=== PATIENT | male | born 1950 | race Caucasian/White ===

== ENCOUNTER 2018-05-19 21:23 | Inpatient (IN) ==
[2018-05-19 22:26] LABS: BASO# 0.02 X1000 (0.0-0.2); BASO% 0.3 % (0.0-0.8); EOS# 0.11 X1000 (0.0-0.7); EOS% 1.5 % (0.0-10.0); HEMATOCRIT 43.2 % (42.0-52.0); HEMOGLOBIN 14.5 g/dL (14.0-18.0); LYMPH# 1.21 X1000 (1.2-3.4); LYMPH% 16.3 % (20.5-51.1); MCH 31.2 PG (27-31); MCHC 33.6 g/dL (33-37); MCV 92.9 FL (81-99); MONO# 0.71 X1000 (0.11-0.59); MONO% 9.6 % (1.7-9.3); MPV 10.1 FL (7.4-10.4); NEUT# 5.36 X1000 (1.4-6.5); NEUT% 72.3 % (42.2-75.2); PLT 197 X1000 (130-400); RBC 4.65 XMIL (4.7-6.1); RDW 13.6 % (11.5-14.5); WBC 7.41 X1000 (4.8-10.8)
[2018-05-19 22:33] LABS: INR 0.9; PROTIME 12.9 Seconds (11.0-16.0)
[2018-05-19 22:34] LABS: PTT 25.3 Seconds (22.3-41.8)
[2018-05-19 22:41] LABS: AGAP 11; ALB/GLOB RATIO 1.6; ALBUMIN 3.9 g/dL (3.5-5.0); ALKALINE PHOSPHATASE 111 U/L (32-122); BUN 13 mg/dL (8-22); CALCIUM 8.9 mg/dL (8.8-10.2); CHLORIDE 106 mmol/L (98-107); COSMO 283; CREATININE 0.7 mg/dL (0.7-1.2); ESTIMATED GFR > 60; GLUCOSE 90 mg/dL (70-104); GOT 19 U/L (10-34); GPT 17 U/L (10-44); POTASSIUM 3.9 mmol/L (3.5-5.1); SODIUM 142 mmol/L (136-145); TCO2 25 mmol/L (25-35); TOTAL BILIRUBIN 0.67 mg/dL (0.20-1.00); TOTAL PROTEIN 6.4 g/dL (6.3-8.3)
[2018-05-19 23:55] LABS: URINE SOURCE CLEAN CATCH
[2018-05-20 00:01] LABS: BILIRUBIN URINE NEGATIVE (NEGATIVE); BLOOD URINE NEGATIVE (NEGATIVE); COLOR YELLOW; GLUCOSE URINE NEGATIVE (NEGATIVE); KETONE URINE NEGATIVE (NEGATIVE); LEUKOCYTES URINE NEGATIVE (NEGATIVE); NITRITE URINE NEGATIVE (NEGATIVE); PH URINE 6.5; PROTEIN URINE NEGATIVE (NEGATIVE); TURBIDITY URINE CLEAR (CLEAR); UROBILINOGEN URINE NORMAL (NORMAL)
[2018-05-20 00:03] LABS: UR EPITHELIAL CELLS <10 /HPF (<10); URINE BACTERIA NEGATIVE /HPF; URINE RBC <10 /HPF (<10); URINE WBC <10 /HPF (<10)
[2018-05-20] MEDS ORDERED: LIPITOR PO ONE (01:06)
[2018-05-20] MEDS ORDERED: ASPIRIN PO ONE (01:06)
--- NOTE | 2018-05-20 01:21 | PROVIDER DOCUMENTATION ---
This chart was entered by Iliana Llamas Scribe, acting as scribe for Wilman Roy MD. HPI-Neurological Disorder - General Chief Complaint: Stroke-Like Symptoms Stated Complaint: EMS Time Seen by Provider: 05/19/18 21:53 Source: police, EMS Allergies/Adverse Reactions: Patient Allergies Allergy/AdvReac Type Severity Reaction Status Date / Time No Known Allergies Allergy Verified 02/15/18 19:50 Home Medications: Home Medication List Medication Instructions Recorded Confirmed Last Taken Type Hydrocodone/APAP 10 mg/325 mg 1 each PO Q6H PRN PRN 09/06/14 02/15/18 07/18/17 21:00 History [Kelso-10] Clonazepam [Klonopin] 1 mg PO TID 07/23/17 02/15/18 07/18/17 21:00 History Gabapentin 600 mg PO BID 07/23/17 02/15/18 07/22/17 23:00 History Bisacodyl [Dulcolax] 10 mg ND QHS #20 supp 02/14/18 02/15/18 Unknown Rx Promethazine [Phenergan] 25 mg ND Q6H PRN PRN #20 supp 02/14/18 02/15/18 Unknown Rx Sulfamethoxazole/Trimethoprim 1 each PO BID #10 tablet 02/14/18 02/15/18 Unknown Rx [Bactrim Ds Tablet] Ondansetron [Zofran] 4 mg PO Q6H PRN PRN #20 tab 02/15/18 Unknown Rx - History of Present Illness-Neuro Nature of Presenting Problem: 67 yom presents w/ems and police w/ c/o slurred speech, cp and rt leg and arm deficits. pt is an inmate at [facility] and was seen by [facility] at 2030. police states that pt has slurred speech and mumbles but has become worse today. Review of Systems - Adult - REVIEW OF SYSTEMS - ADULT Constitutional: reports: no symptoms reported. denies: chills, fever Eyes: reports: no symptoms reported Ears, Nose, Mouth & Throat: reports: no symptoms reported Cardiovascular: reports: see HPI, chest pain. denies: edema, heart murmur, irregular heart rate, orthopnea Respiratory: reports: no symptoms reported Gastrointestinal: reports: no symptoms reported Genitourinary: reports: no symptoms reported Musculoskeletal: reports: no symptoms reported Integumentary: reports: no symptoms reported Neurological: reports: see HPI, slurred speech, other (rt sided deficits). denies: loss of balance, numbness, seizure, syncope Psychiatric: reports: no symptoms reported Endocrine: reports: no symptoms reported Hematologic/Lymphatic: reports: no symptoms reported Allergic/Immunologic: reports: no symptoms reported All Other Systems: Reviewed and Negative Past History - Adult - PAST MEDICAL HISTORY-ADULT Review of Records: reports: Old Records Reviewed, Nursing Assessment Review, Medications Reviewed, Social history reviewed & non-contributory. Major Childhood Illnesses: reports: denies history Cardiovascular: reports: CAD, HTN, hyperlipidemia, [place] Respiratory: reports: denies history Gastrointestinal: reports: GERD, GI bleed Obstetrical/Gynecological: reports: denies history Genitourinary: reports: prostate cancer Musculoskeletal: reports: chronic pain (back) Neurological: reports: CVA, headaches/migraines Psychiatric: reports: anxiety Endocrine/Immune: reports: denies history Other Conditions: reports: denies history - PRIOR SURGERIES/PROCEDURES Surgical/Procedure History: reports: orthopedic (extremity), back/neck - IMMUNIZATION STATUS Childhood Immunizations: See Nurse Assessment Flu Vaccine: See Nurse Assessment - FAMILY HISTORY Family History: reviewed, not pertinent - SOCIAL HISTORY Smoking: non-smoker Substance Use: none/never Physical Exam- Neurological - Physical Exam-Neuro Initial Vital Signs Reviewed: Yes General Appearance: alert, mild distress, slow to respond (pt mumbles and has slurred speech normally). negative: cachetic, anxious, combative Eye Exam: bilateral eye: normal inspection, PERRL, EOMI HENMT: normocephalic/atraumatic, moist mucous membranes, normal ENT inspection Head Injury: no evidence of injury. negative: active bleeding, contusions, ecchymosis, flap, lacerations, raccoon eyes Neck: non-tender, full range of motion, supple, normal inspection Respiratory: chest non-tender, lungs clear, normal breath sounds Cardiovascular: normal peripheral pulses, regular rate, rhythm, no edema, no gallop, no JVD, no murmur. negative: extra beats, friction rub, irregularly irregular Abdominal Exam: normal bowel sounds, non tender, soft Lymphatic: no adenopathy Peripheral Pulses: radial (R): 2+, radial (L): 2+ Extremity: normal range of motion, non-tender, normal inspection solar tech Exam: normal hearing, PERRL, abnormal speech (mumbles and slurred). negative: normal speech, abnormal eye position, abnormal gag reflex, abnormal pupil position, gaze palsy, hearing deficit (R), hearing deficit (L) Motor/Sensory: weak motor strength RUE, weak motor strength RLE. negative: no motor deficit, no sensory deficit, pronator drift (R), pronator drift (L) Neurologic: motor weakness (rt side). negative: grossly normal, no motor/sensory deficits Integumentary: normal color, normal turgor, warm/dry Psych/Mental Status: normal mood/affect, normal thought content, normal thought process, oriented x 3, disheveled. negative: anxious, depressed affect, paranoid, tearful - Glascow Coma Scale Best Eye Response: (4) open spontaneously Best Verbal Response: (5) oriented Best Motor Response: (6) obeys commands Total Glascow Score: 15 Progress - PLAN OF CARE/RESULTS Progress/Plan/Lab Results: Vital Signs - 8 hr 05/19/18 21:57 05/19/18 21:58 05/19/18 22:10 Temperature 98.6 F Pulse Rate 77 71 70 Respiratory Rate 20 26 H 28 H Blood Pressure 186/96 186/96 O2 Sat by Pulse Oximetry 96 97 97 05/19/18 22:54 05/19/18 23:01 05/19/18 23:15 Temperature Pulse Rate 75 76 71 Respiratory Rate 19 16 20 Blood Pressure 179/103 176/92 168/112 O2 Sat by Pulse Oximetry 98 97 96 05/19/18 23:30 05/19/18 23:46 05/20/18 00:00 Temperature Pulse Rate 68 67 61 Respiratory Rate 27 H 19 14 Blood Pressure 156/92 145/91 150/84 O2 Sat by Pulse Oximetry 96 95 96 Laboratory Results - last 24 hr 05/19/18 05/19/18 05/19/18 21:55 21:55 21:55 WBC 7.41 RBC 4.65 L Hgb 14.5 Hct 43.2 MCV 92.9 MCH 31.2 H MCHC 33.6 RDW Std Deviation 13.6 Plt Count 197 MPV 10.1 Neut % (Auto) 72.3 Lymph % (Auto) 16.3 L [place] % (Auto) 9.6 H Eos % (Auto) 1.5 Baso % (Auto) 0.3 Neut # (Auto) 5.36 Lymph # (Auto) 1.21 [place] # (Auto) 0.71 H Eos # (Auto) 0.11 Baso # (Auto) 0.02 PT 12.9 INR 0.90 PTT (Actin FS) 25.3 Sodium 142 Potassium 3.9 Chloride 106 Carbon Dioxide 25 Anion Gap 11 BUN 13 Creatinine 0.7 Estimated GFR/1.73 m2 > 60 BUN/Creatinine Ratio 19 Glucose 90 POC Glucose Calculated Osmolality 283 Calcium 8.9 Total Bilirubin 0.67 AST 19 ALT 17 Alkaline Phosphatase 111 Troponin T Total Protein 6.4 Albumin 3.9 Globulin 2.5 Albumin/Globulin Ratio 1.6 Urine Source Urine Color Urine Turbidity Urine pH Ur Specific [place] Urine Protein Ur Glucose (Stick) Ur Ketones (Stick) Urine Blood Urine Nitrite Urine Bilirubin Urobilinogen Dipstick Urine Leukocytes Urine WBC (Auto) Urine RBC (Auto) U Epithel Cells (Auto) Urine Bacteria (Auto) 05/19/18 05/19/18 05/19/18 21:55 22:34 23:48 WBC RBC Hgb Hct MCV MCH MCHC RDW Std Deviation Plt Count MPV Neut % (Auto) Lymph % (Auto) [place] % (Auto) Eos % (Auto) Baso % (Auto) Neut # (Auto) Lymph # (Auto) [place] # (Auto) Eos # (Auto) Baso # (Auto) PT INR PTT (Actin FS) Sodium Potassium Chloride Carbon Dioxide Anion Gap BUN Creatinine Estimated GFR/1.73 m2 BUN/Creatinine Ratio Glucose POC Glucose 81 Calculated Osmolality Calcium Total Bilirubin AST ALT Alkaline Phosphatase Troponin T < 0.010 Total Protein Albumin Globulin Albumin/Globulin Ratio Urine Source CLEAN CATCH Urine Color YELLOW Urine Turbidity CLEAR Urine pH 6.5 Ur Specific [place] 1.020 Urine Protein NEGATIVE Ur Glucose (Stick) NEGATIVE Ur Ketones (Stick) NEGATIVE Urine Blood NEGATIVE Urine Nitrite NEGATIVE Urine Bilirubin NEGATIVE Urobilinogen Dipstick NORMAL Urine Leukocytes NEGATIVE Urine WBC (Auto) <10 Urine RBC (Auto) <10 U Epithel Cells (Auto) <10 Urine Bacteria (Auto) NEGATIVE Orders Category Date Time Status Cardiac Monitoring DIRECTED Care 05/19/18 22:00 Active Finger Stick Blood Sugar (ED) DIRECTED Care 05/19/18 22:00 Active Saline Loc NOW Care 05/19/18 22:00 Active CHEST-PORTABLE [RAD] Stat Exams 05/19/18 22:[address] HEAD W/O CONTRAST [CT] Stat Exams 05/19/18 22:00 Taken CBC WITH ELECTRONIC DIFF [HEME] Stat Lab 05/19/18 21:55 Completed COMPREHENSIVE METABOLIC PANEL [CHEM] Stat Lab 05/19/18 21:55 Completed PROTIME WITH INR [COAG] Stat Lab 05/19/18 21:55 Completed PTT [COAG] Stat Lab 05/19/18 21:55 Completed TROPONIN T Stat Lab 05/19/18 21:55 Completed URINALYSIS W/POSS RFLX CULT [URINALYSIS] Stat Lab 05/19/18 23:48 Completed ATORVAstatin [Lipitor] Med 05/20/18 01:06 Discontinued 80 mg PO NOW ONE Aspirin Med 05/20/18 01:06 Discontinued 325 mg PO NOW ONE EKG [EKG] Stat Ther 05/19/18 22:00 Ordered Transfer/Admit Order [TRANSFER] Routine Transfer 05/20/18 01:08 Ordered Result Diagrams: 05/19/18 21:55 05/19/18 21:55 - EKG 1 Time of EKG reading by physician:: 22:29 EKG Read and Signed by:: Wilman Roy EKG Interpretation (*Must complete 3 of following elements*): Abnormal (borderline) Rate: 60 Rhythm: NSR QRS: RBB (incomplete) ND Interval: normal - CT/MRI 1 CT Study: Head (Impression: No acute hemmorage or process identified) Impression: Normal Departure - Departure Date of Disposition Decision: 05/20/18 Time of Disposition Decision: 01:21 DIAGNOSIS: Stroke-like symptom Disposition: ADMITTED INPATIENT 09 Certified Medical Emergency: Emergent Condition: Stable Referrals and Follow-Ups: Bubba Sauer MD [Primary Care Provider] - - Critical Care Note This patient required my direct & personal management of CC.: No Attestation - Physician/ CURTIS Attestation Patient care was provided by Advanced Practice Provider:: No The physician spent face to face time with patient:: Yes Advanced Practice Provider documentation review:: Supervising physician onsite and consulted in the evaluation and care of this patient. The physician did have a face to face encounter with the patient. This chart was documented by the indicated scribe, (Iliana Llamas, Francois) and accurately reflects the services I performed and decisions made by me, Wilman Roy MD, as attested by the provider's signature.
--- NOTE | 2018-05-20 02:48 | HISTORY AND PHYSICAL ---
PHYSICIAN: Bubba Sauer MD REASON FOR ADMISSION: One-day history of dysarthria and right-sided numbness and weakness. HISTORY OF PRESENT ILLNESS: Mr. Roni Abdullahi is a 67-year-old man with a past medical history of a CVA, prostate cancer, hypertension, hyperlipidemia, coronary artery disease and prior history of organic brain disorder. He is currently a resident of the local care home. He reports that about several hours ago, yesterday night, he was sitting in his cell and he noticed a roaring noise in his head which persisted for well over 30 minutes. He said he lost his hearing after awhile transiently and the roaring noise got worse. The next thing he knew was that he may have blacked out and when he came to [facility] While he was in the [facility] they checked his blood pressure which was markedly elevated, as he was told, and he needed to come to the hospital. However, when he came to he also noticed that his right side was weaker than his left side and there was associated numbness. He said his speech was also somewhat compromised in the sense that he had a hard time enunciating some words. He also reports at the time when he came to that he had mid retrosternal chest pain which was nonradiating associated with some shortness of breath and some mild nausea, but no diaphoresis or palpitations. Since being in the ER he says his weakness on the right side and numbness have slowly improved and his speech has gotten a little better. The pain is also subsiding. He has a hard time qualifying the type of pain he has. He denies antecedent PND, orthopnea, leg swelling or palpitations in the past. He denies any visual symptoms, neck stiffness or fever. He says currently he has a dull frontal headache. REVIEW OF SYSTEMS: A 12-system review was done. Patient denies any polyuria or polydipsia, no arthralgia or rash. He denies any fecal or urinary incontinence. He denies any tongue bite. No GI or complaints. HOME MEDICATIONS: At yet to be reconciled. SURGICAL HISTORY: He has had a skull fracture repair surgery, testicular surgery, back surgery, knee and hand surgery. SOCIAL HISTORY: Does not smoke, drink or do illicit drugs. Had a distant history of use of cocaine and heroin, and not too distant use and abuse of methamphetamines. FAMILY HISTORY: Notable for diabetes, stroke and coronary artery disease in first-degree relatives. ALLERGIES: No known allergies. LAB WORK: CT head does not show any acute intracranial bleed. Chest film is slightly rotated; no gross abnormalities noted. White count 7000, hemoglobin 14, hematocrit 43, platelets 197,000. Chemistry: BUN 13, creatinine 0.7. Troponin less than 0.010. PT and PTT are normal. Urine drug screen is negative. EKG shows normal sinus rhythm, no acute ST wave changes consistent with ischemia or injury pattern, possible incomplete right bundle-branch block. PHYSICAL EXAMINATION: VITAL SIGNS: Blood pressure 150/84, heart rate 61, respirations 14, temperature 98.6, 96% on room air. GENERAL: He is a middle-aged man not in acute distress. Alert and oriented x3, normal mood and affect. HEENT: Normocephalic, atraumatic. Eyes are PERRLA, EOMI. He is anicteric and mildly pale. Oropharyngeal exam is grossly normal, some cyanosis. NEUROLOGY: Cranial nerves 2-12 are only notable for mild dysarthric speech. He does have a long- standing history of some degree of dysarthria of his speech according to the guard who is at the bedside and knows him, but says this is slightly worse than normal. On the rest of his neurologic exam the patient does have 3-4/5 power of the entire right side compared to the left which is 5/5. There are no tremors noted. Cranial nerves 2-12 grossly intact otherwise. NECK: Supple. No JVD, carotid bruit or thyromegaly. CHEST: Clear when auscultated on both lung helms. CARDIOVASCULAR: First and second heart sounds heard. No gallops, murmurs or rubs. Rhythm is regular. ABDOMEN: Full, soft, without tenderness or organomegaly. Bowel sounds are normal. RECTAL: Exam deferred at this time. EXTREMITIES: Neurovascularly intact. No edema, clubbing or cyanosis. SKIN: Intact with no breakdown or lesions. MUSCULAR: Exam is grossly normal. ASSESSMENT AT THIS TIME: 1. 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 2. Hypertension. 3. Hyperlipidemia. 4. Coronary artery disease. PLAN: Stroke risk modification will be initiated. Lipid panel will be checked and high dose statins and antiplatelet therapy instituted at this point in time. Very conservative blood pressure control. Only if systolic blood pressure is greater than 160 will we intervene. This will be with moderate to low doses of antihypertensives. Imaging studies and also echocardiography will be ordered. Consult Neurology to see the patient. Neuro checks will also be done to monitor the patient. Urine drug screen will also be done to ensure the patient is not using illicit substances which may have incited this event, especially since he has a longstanding history of drug abuse, even though he has been incarcerated. DVT prophylaxis will also be instituted. He will benefit from some degree of PT, speech therapy and occupational therapy while he is in house. cc: MD Odell Quijano MD
[2018-05-20 04:37] LABS: UR AMPHETAMINES QUAL NONE DETECTED (NONE DETECT); UR BARBITUATES QUAL NONE DETECTED (NONE DETECT); UR BENZODIAZEPIN QUAL NONE DETECTED (NONE DETECT); UR CANNABINOIDS QUAL NONE DETECTED (NONE DETECT); UR COCAINE QUAL NONE DETECTED (NONE DETECT); UR METHADONE QUAL NONE DETECTED (NONE DETECT); UR OPIATES QUAL NONE DETECTED (NONE DETECT); UR OXYCODONE QUAL NONE DETECTED (NONE DETECT); UR PCP QUAL NONE DETECTED (NONE DETECT)
[2018-05-20] MEDS: LOPRESSOR PO SCH ×2 (04:38→09:00)
[2018-05-20] MEDS ORDERED: ZOFRAN IV PRN (04:38)
[2018-05-20] MEDS ORDERED: NS 1,000 ML IV SCH (04:38)
[2018-05-20] MEDS: LOVENOX SUBQ SCH (05:10)
[2018-05-20] MEDS ORDERED: TYLENOL PR PRN (06:26)
--- NOTE | 2018-05-20 06:29 | Diag Imaging Result Doc PS360 ---
CT HEAD W/O CONTRAST - 05/19/2018 INDICATION: stroke like symptoms COMPARISON: 09/17/2014 FINDINGS: The ventricles and sulci are normal in size and contour. No intracranial mass or hemorrhage. The skull is intact. The sinuses mastoids and middle ears are clear. IMPRESSION: Negative exam. This exam was performed using automated exposure control, adjustment of mA or kV according to patient size, and/or use of iterative reconstruction technique Electronically signed by Zhang Mart 05/20/2018 6:27 AM
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
--- NOTE | 2018-05-20 07:41 | EKG Report ---
Test Performed on : 05/19/2018 10:29:34 PM Test Reason : Stroke like symptoms Blood Pressure : / mmHG Vent. Rate : 060 BPM Atrial Rate : 060 BPM P-R Int : 148 ms QRS Dur : 096 ms QT Int : 412 ms P-R-T Axes : 043 -28 045 degrees QTc Int : 412 ms Normal sinus rhythm. Incomplete right bundle branch block Borderline ECG When compared with ECG of 21-JUL-2017 23:47, No significant change was found Unconfirmed Result
[2018-05-20] MEDS ORDERED: VASOTEC IV PRN (08:31)
[2018-05-20] MEDS ORDERED: NORVASC PO SCH (09:00)
[2018-05-20 10:11] LABS: HEMOGLOBIN A1C 5.1 % (4.8-6.0)
--- NOTE | 2018-05-20 10:28 | PROGRESS NOTE ---
DATE: 05/20/2018 INTERVAL HISTORY: Mr. Abdullahi is a 67-year-old man who [facility], who came in with complaints of slurred speech and right-sided weakness. In the ED document, it says that the patient was seen by a physician in the retirement at about 8:30 p.m., and the ED note is at around midnight, so it looks like the patient came in more than 3.5 hours after symptom onset, and he did not receive any tPA. SUBJECTIVE: The patient is a little teary. He continues to have weakness of right upper and right lower extremity. I discussed with him about his blood pressure goals, and answered his questions. OBJECTIVE: Current Vital Signs: Temperature of 98.4 degrees, pulse 69, respiratory rate 18, blood pressure 162/106, saturating 96% on room air. General: Does not appear in any acute distress. HEENT: Oral cavity is moist. No pallor, cyanosis, clubbing, or icterus. Lungs: Air entry bilaterally equal. No wheeze, rhonchi, crackles. Cardiovascular: S1, S2 normal. No murmur, rub, or gallop. Abdomen: Soft, nontender. No lower extremity edema. Electrocardiogram had normal sinus rhythm with incomplete right bundle branch block. Neurological: He is alert. He is oriented x3. He has decreased sensations affecting entire right face, right upper extremity, right lower extremity, and to some extent, right trunk. He has power about 2/5 affecting right upper extremity and right lower extremity at wrist, elbow, shoulder, hip, knee, and ankle joints. His cranial nerve examination suggests that he does have tongue deviation to left side and some left-sided drooping. He is not able to make a puff on the left cheek. His forehead furrows appear normal. He does have intact cough. His speech is stuttering, which is apparently baseline for him. He has 2+ reflexes bilaterally. I could not elicit Babinski reflex on the right. On the left side, he does inconsistent response. LABORATORY DATA: Labs suggestive of normal blood counts, normal electrolytes, normal urinalysis. ASSESSMENT AND PLAN: 1. 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 Follow up MRI, MRA, echocardiogram, lipid panel, hemoglobin A1c, and troponin. Follow up physical therapy, occupational therapy, and speech therapy recommendations with Neurology on board. I will allow permissive hypertension for at least the next 24 hours, and will treat it with intravenous enalapril if systolic blood pressure is more than 220 or diastolic blood pressure more than 120 mmHg. 2. For secondary prevention of cerebrovascular accident, I will continue him on daily aspirin, atorvastatin. I will appreciate Neurology recommendation about need for dual antiplatelet therapy for 6 months. Continue enoxaparin for deep venous thrombosis prophylaxis for now. DISPOSITION: The patient remains inside the hospital for further workup. He is an inmate of [facility]. His visit is secure, and I was told by the bedside security personnel that the patient's family should not be notified of this admission. Plan of care discussed with the patient. All of his questions have been answered. CODE status: DNR level 1 after discussion with the patient. ADDENDUM: He wants to be a full code now as informed to me by his nurse. cc: Den Rios MD MTDD
[2018-05-20] MEDS ORDERED: NEURONTIN PO SCH (13:00)
--- NOTE | 2018-05-20 14:49 | ECHO REPORT ---
ORDER DATE: 05/20/2018 INDICATION: CVA. FINDINGS: 1. The right atrium appears normal in size. There is an echodensity in the superior aspect of the right atrium, which could be a catheter tip versus a eustachian valve. 2. Trace tricuspid regurgitation. RV systolic pressure is estimated at 43 mmHg. 3. Normal RV size and systolic function. 4. Trace pulmonic insufficiency. 5. Normal left atrial size with a dimension of 3.8 cm. 6. No mitral valve prolapse. Trace mitral regurgitation. 7. Normal LV size, end-diastolic dimension of 4.9. Normal wall thicknesses with a posterior and interventricular septal wall thickness 1.1 cm each. Normal LV systolic function. The estimated EF is 60% to 65% with normal wall motion. 8. Aortic valve opens well. It is trileaflet. There is mild insufficiency. No clear evidence of stenosis. 9. The aorta appears normal in visualized segments. 10. No pericardial effusion is identified. 11. 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 12. Patient is in sinus rhythm during the study. cc: MD Oedll Pérez MD
--- NOTE | 2018-05-20 17:01 | CONSULTATION ---
DATE OF CONSULTATION: 05/20/2018 REASON FOR CONSULT: Stroke. HISTORY OF PRESENT ILLNESS: This is a 67-year-old right-handed male in who currently resides in the local [facility]. He has a history of reported "mild stroke," hypertension, hyperlipidemia, and polysubstance abuse. Last night, he noticed sudden onset of a roaring noise in his head, and that persisted for several minutes' time. He subsequently may have blacked out and realized he was being evaluated by the staff. Apparently, his blood pressure was elevated at the [facility], though I do not see documentation of this directly. He was brought to the emergency room. He also had realized he had right arm and leg weakness and had some difficulty with getting his words out. Since being in the emergency department, his symptoms have shown some improvement, but he is not at baseline. He had a head CT that was unremarkable. Urine toxicology was negative. Chemistry panel unremarkable. The patient went to [facility] about 2 weeks ago, and he reports that while he was taking a full-dose aspirin daily at home as well as several other medications, including Neurontin, Ativan, lisinopril, and others, that those were not continued since he has been in the [facility]. PAST MEDICAL HISTORY: Includes: 1. Reported hypertension. 2. "Mild stroke" 10 years ago with symptoms of right lower facial drooping. 3. Hyperlipidemia. 4. Anxiety. PAST SURGICAL HISTORY: 1. Three back surgeries 2. Surgery to the left knee. 3. Surgery to the left hand. 4. There is report of skull fracture repair surgery. FAMILY HISTORY: Positive for stroke and coronary disease. SOCIAL HISTORY: He is a lifelong nonsmoker. He does not currently drink or do illicits. He reports the last time he was using drugs was 1 year ago, and he reports using heroin, methamphetamine that he injected, and cocaine. He used to drink many years ago. He has been in the [facility] for 2 weeks. ALLERGIES: No known drug allergies. HOME MEDICATION: He has not received daily medications for 2 weeks in the [facility]. REVIEW OF SYSTEMS: Balance of 12 was conducted and is otherwise negative except that detailed in the HPI. PHYSICAL EXAMINATION: Vital Signs: Afebrile, blood pressure was 186/96 on admission, current 168/102, pulse 60s, respirations 20, 97% on room air. Neurological: Mr. Abdullahi is seen walking from the restroom with assistance. He is dragging his right leg and holding his right arm flexed against his chest. He is awake, alert, oriented to self, location, but does not otherwise answer orientation questions correctly. He is attentive and spontaneous. He follows simple commands consistently. Left, right, and digit distinction preserved. He names objects, but not parts of objects. He repeats part of the sentence, but not the full sentence. His voice is somewhat low, slowed. There is a bit of hesitation with many of his words, and he is somewhat difficult to understand. There is also a component of stuttering. Pupils equal, round, reactive to bright light. Gaze conjugate, forward. Extraocular movements are full. Visual helms: He may have a right field cut. He can hear. There is potentially a very subtle flattening of the nasolabial fold on the right with good activation. Tongue protrudes to the left. Palate elevates symmetrically. Shoulder shrug is full. He reports diminished sensation to pinprick on the right lower face but reports that the pinprick is symmetric on the right and left forehead. However, with vibratory sense, he has forehead splitting as well as splitting of the nasal bone. He has a difficult time raising the right arm and does so exceedingly slowly. It does drift downward but does not pronate. Tone is symmetric in the limbs. He requires encouragement with strength testing of the right arm and leg, though at times seems to give pretty full strength in all muscles. I did not get him to dorsiflex the right foot as well. He reports diminished sensation to pinprick on the right arm and leg compared to the left. Rapid alternating movements are slowed on the right compared to the left. [id number], he does not participate very well using the right arm. His gait was as described above. Reflexes are 2+, slightly diminished on the right compared to the left, but this is very slight. DIAGNOSTICS: Head CT noncontrast was personally reviewed. No acute findings. Labs reviewed in the chart are pretty unremarkable. Toxicology is negative. ASSESSMENT AND PLAN: Concern for left middle cerebral artery distribution stroke. He has some exam findings which would be consistent with this; however, he also has some functional components to his exam. Agree with MRI and MRA of the brain. I am also going to order an MRA of the neck to rule out dissection. He has not been taking aspirin since being in the [facility], and I would recommend a low- dose daily aspirin as well as high-potency statin therapy. I would not suggest dual antiplatelet therapy. Agree with permissive hypertension for the next few days if MRI does indeed confirm ischemic stroke. Given the prolonged duration of symptoms, we should be able to see ischemic changes on MRI if that is indeed the etiology. PT/OT, ST. Thank you for the consultation. cc: Gosia Ross MD MTDAle
[2018-05-20] MEDS: TYLENOL PO PRN (18:04)
[2018-05-20] MEDS ORDERED: TYLENOL PO ONE (18:09)
[2018-05-20] MEDS ORDERED: LIPITOR PO SCH (21:00)
[2018-05-20] MEDS: ATIVAN PO SCH (21:53)
[2018-05-20] MEDS: NEURONTIN PO SCH (21:53)
[2018-05-21] MEDS: LOVENOX SUBQ SCH (05:05)
[2018-05-21] MEDS ORDERED: ASPIRIN PO SCH (09:00)
--- NOTE | 2018-05-21 10:24 | Diag Imaging Result Doc PS360 ---
EXAM: MRA BRAIN W/O CONTRAST 05/21/2018 HISTORY: stroke TECHNIQUE: 3-D [id number] COMMENT: Both vertebral and the basilar artery are patent. The posterior communicating artery on the right is demonstrated. There is no evidence of major branch occlusion or aneurysm. Compared to the previous study of 09/06/2014 the more peripheral vessels are better demonstrated but otherwise are has been no significant change. IMPRESSION: No significant abnormality. Electronically signed by Qamar Haile 05/21/2018 10:22 AM
--- NOTE | 2018-05-21 10:26 | Diag Imaging Result Doc PS360 ---
EXAM: MRA NECK W/O CONT 05/21/2018 HISTORY: stroke TECHNIQUE: 3-D [id number] COMMENT: The current study is technically inferior to the previous examination of 09/06/2014 which was performed with contrast. There is no evidence of occlusive lesion in the common or internal carotid arteries. IMPRESSION: No evidence of occlusion. Electronically signed by Qamar Haile 05/21/2018 10:24 AM
[2018-05-21] MEDS: NEURONTIN PO SCH ×2 (10:32→14:04)
[2018-05-21] MEDS: TYLENOL PO PRN (10:32)
[2018-05-21] MEDS: ATIVAN PO SCH (10:32)
--- NOTE | 2018-05-21 10:33 | Diag Imaging Result Doc PS360 ---
EXAM: MRI BRAIN W/WO CONTRAST 05/21/2018 HISTORY: stroke TECHNIQUE: T1 sagittal, axial and post gadolinium axial with coronal reformation, T2, FLAIR, DWI axial and coronal gradient echo. COMMENT: The current examination is compared with the previous study of 09/06/2014. There is no evidence of restricted diffusion. There is some considerable motion artifact on the T1 axial images. There is no evidence of mass effect, bleed, or abnormal extra-axial fluid collection. No evidence of abnormal gadolinium enhancement is present. There are a few punctate subcortical foci of increased T2-weighted signal intensity in both parietal lobes similar in appearance to the previous study. IMPRESSION: Chronic ischemic microvascular white matter disease. No evidence of acute disease. Electronically signed by Qamar Haile 05/21/2018 10:31 AM
--- NOTE | 2018-05-21 12:52 | PROGRESS NOTE ---
DATE: 05/21/2018 SUBJECTIVE: Dr. Ross saw Mr. Abdullahi for initial neurology evaluation yesterday. He presented with uncertain speech difficulty and right-sided weakness. There were some significant atypical features to his exam. He has had stable course since admission. This morning, he told me he feels better, feels stronger, still reports weakness in the right limbs. PHYSICAL EXAMINATION: Neurologic: His speech is feeble, slow, inconsistent stuttering, more of a baby talk pattern than a true dysarthria or hypophonia. He followed simple commands consistently. He followed commands requiring right/left distinction and digit distinction. He named objects and parts of objects well. Answers were often slow, but all were correct. I did not test his cognitive function. Head and neck unremarkable. Visual helms are full, tested by confrontational finger counting. Extraocular movements are full. Facial motility is normal and symmetric. Gag is intact. Tongue protrudes very inconsistently to the left. Shoulder shrug is good bilaterally. Strength is normal in the left limbs. He demonstrates very slow movement in the right limbs but eventually generated full power in all groups. His effort was quite inconsistent when testing the right limbs. With repeated testing and distraction, he showed normal strength in the right limbs. He did well with right [id number]. I did not test his gait or sensation. DIAGNOSTIC DATA: Brain MRI just completed shows no acute findings and specifically no evidence of acute ischemic left hemisphere infarction. Brain MRA and cervical MRA are unremarkable. Systolic blood pressures have ranged 120s to 190 in the last 24 hours. He has been afebrile. IMPRESSION: Subjective right-sided weakness and speech difficulty with no objective neurologic deficit, no evidence of ischemic stroke, no evidence of other [employer] explanation for these complaints. I told him that I think he will make full recovery rapidly. I do not have any urgent suggestion from neurologic standpoint. I think we can treat his blood pressure more aggressively in light of the findings on exam and MRI. We discussed his risk factors for cerebrovascular ischemic disease, and I encouraged him to be aggressive with long-term management of those. Mr. Abdullahi has history of fairly similar presentation except left-sided symptoms in 2015. Workup was all negative then. Findings on exam were all subjective, equivocal, inconsistent with no objective deficit. He made complete recovery. Migraine was a consideration then. Thanks for asking Neurology to see Mr. Abdullahi. I will be glad to see him as an outpatient later, if needed. cc: MD RAMSES Calvert III
[2018-05-21 15:41] VITALS: BP 137/85
--- NOTE | 2018-05-22 13:54 | DISCHARGE SUMMARY ---
ADMISSION DATE: 05/20/2018 DISCHARGE DATE: 05/21/2018 The patient left against medical advice as he did not want to wait till I could see him. Date of discharge 05/21/2018. DISCHARGE DIAGNOSES: 1. Suspected left middle cerebral artery cerebrovascular accident; however, the MRI imaging was negative, so unclear etiology of left upper and lower extremity weakness. 2. Essential hypertension. 3. Chronic pain. 4. Chronic anxiety. 5. History of organic brain disorder. 6. History of hyperlipidemia. OTHER DIAGNOSES: 1. History of incarceration. 2. History of hypertension. 3. History of prostate cancer. 4. History of coronary artery disease. 5. History of organic brain disorder. 6. History of essential hypertension. DOCUMENTED VITALS: At the time of discharge, temperature of 98.5 degrees, pulse 107, respiratory rate 20, blood pressure 137/85. He was saturating 97% on room air. I could not perform physical examination at the time of discharge as the patient left against medical advice before I could see him. However, on my previous examination, he did have decreased sensation of right-sided face, right upper extremity, right lower extremity. He also had weakness with power about 2 on 5 on right upper and right lower extremity. His tongue was deviated to the left. SIGNIFICANT LABS: During hospital admission, his WBC was 7.4, hemoglobin 14.5, platelet count 197,000. INR of 0.9. Normal electrolytes with creatinine of 0.7. Lipid panel suggestive of LDL of 82 and total cholesterol of 115. His urine toxicology was unremarkable. No microbiological data. SIGNIFICANT IMAGING: During hospital admission, chest x-ray on admission had mild cardiomegaly without any consolidation. Head CT did not have any acute intracranial pathology. Brain MRA did not have any acute abnormalities. Brain MRI had chronic ischemic microvascular white matter changes without evidence of acute disease. Neck MRA did not have any evidence of any occlusion. HOSPITAL COURSE SUMMARY: Mr. Abdullahi is a 67 years old man who came in on 05/20/2018 with chief complaints of 1-day history of dysarthria, right-sided numbness and weakness. The patient was at that time a [facility] of local [facility]. Apparently, the patient had started noticing roaring noise in his head, which persisted about 30 minutes and then later on he had passed out and [facility] At that time his blood pressure was noted to be markedly elevated and he was advised to come to the hospital. When he came to the hospital, he noted that his right-sided lower right side, upper and lower extremity was significantly weaker than the left side with associated numbness. His speech was also somewhat compromised. In the emergency room, he was found to have a systolic blood pressure of 180. Head CT was unremarkable. No tPA was given as the patient likely presented after 3.5 hours of symptom onset. He was admitted on telemetry unit for further monitoring. While inside the telemetry unit, he did not have any acute events that were reported to me. His imaging including echocardiogram had normal left ventricle systolic function. Brain imaging was unremarkable. Neurology was on board. The patient was started on aspirin and high-dose statin for future CVA prevention. However, considering negative brain MRI, it was baffling what could have presented, what could have cause the patient's presentation. Neurology noted that the patient had similar presentation in 2015 as well. Before further investigation into this could be done the patient left against medical advice. He was also released from the custody and I could not see him. Less than 30 minutes were spent in preparing discharge summary for this patient. cc: Den Rios MD MTDD
== END 2018-05-21 16:08 | disposition left against medical advice (07) | DRG 57 ==
LOC: ED 21:23 → SUATTDRO 05-20 03:50 → EDIPHOLD 05-20 03:50 → 4N 05-20 14:21
PROVIDERS: ATTEND Internal Medicine
CPT/HCPCS: 70450; 70544; 70547; 70553; 71010; 71045; 80053; 80061; 80101; 80301; 80307; 80324; 80345; 80346; 80353; 80358; 80361; 80365; 81001; 82948; 83036; 83721; 83992; 84484; 85025; 85610; 85730; 92526; 93005; 93306; 93880; 94761; 96360; 96361; 96372; 97110; 97162; 97165; 97530; 99285; A9270; A9579; C8929; G0431; G0434; G0479; G0480; J1650; J7030; Q9957; XXXXX

== ENCOUNTER 2018-10-08 11:53 | Inpatient (IN) ==
--- NOTE | 2018-10-08 12:22 | Diag Imaging Result Doc PS360 ---
EXAM: CT HEAD W/O CONTRAST 10/08/2018 HISTORY: possible stroke TECHNIQUE: This exam was performed using automated exposure control, adjustment of mA or kV according to patient size, and/or use of iterative reconstruction technique. COMMENT: There is no evidence of mass effect, bleed, or abnormal extra-axial fluid collection. Compared to 05/26/2018 there has been no significant change. The calvarium is intact. The visualized paranasal sinuses are clear. IMPRESSION: No evidence of acute intracranial disease. Electronically signed by Qamar Haile 10/08/2018 12:20 PM
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
[2018-10-08 13:01] LABS: BASO# 0.02 X1000 (0.0-0.2); BASO% 0.3 % (0.0-0.8); EOS# 0.09 X1000 (0.0-0.7); EOS% 1.4 % (0.0-10.0); HEMOGLOBIN 12.5 g/dL (14.0-18.0); IMM GRAN# 0.01 X1000 (0.0-0.04); IMM GRAN% 0.2 % (0.0-0.5); LYMPH# 1.05 X1000 (1.2-3.4); LYMPH% 16.8 % (20.5-51.1); MCH 30.9 PG (27-31); MCHC 33.8 g/dL (33-37); MCV 91.4 FL (81-99); MONO% 9.6 % (1.7-9.3); MPV 10.4 FL (7.4-10.4); NEUT# 4.48 X1000 (1.4-6.5); NEUT% 71.7 % (42.2-75.2); PLT 227 X1000 (130-400); RBC 4.05 XMIL (4.7-6.1); RDW 13.6 % (11.5-14.5); WBC 6.25 X1000 (4.8-10.8)
[2018-10-08 13:04] LABS: INR 0.89; PROTIME 12.5 Seconds (11.0-16.0)
--- NOTE | 2018-10-08 13:04 | EKG Report ---
Test Performed on : 10/08/2018 11:49:36 AM Test Reason : cp, cva Blood Pressure : / mmHG Vent. Rate : 079 BPM Atrial Rate : 079 BPM P-R Int : 138 ms QRS Dur : 094 ms QT Int : 382 ms P-R-T Axes : 049 -26 054 degrees QTc Int : 438 ms Normal sinus rhythm. Incomplete right bundle branch block Borderline ECG When compared with ECG of 19-MAY-2018 22:29, No significant change was found Unconfirmed Result
[2018-10-08 13:13] LABS: AGAP 10; ALBUMIN 3.6 g/dL (3.5-5.0); ALKALINE PHOSPHATASE 99 U/L (32-122); BUN 12 mg/dL (8-22); CALCIUM 7.9 mg/dL (8.8-10.2); CHLORIDE 106 mmol/L (98-107); COSMO 278; CREATININE 0.8 mg/dL (0.7-1.2); ESTIMATED GFR > 60; GLUCOSE 119 mg/dL (70-104); GOT 28 U/L (10-34); GPT 18 U/L (10-44); POTASSIUM 3.5 mmol/L (3.5-5.1); SODIUM 139 mmol/L (136-145); TCO2 24 mmol/L (25-35); TOTAL PROTEIN 6.2 g/dL (6.3-8.3)
--- NOTE | 2018-10-08 14:24 | EKG Report ---
Test Performed on : 10/08/2018 2:15:43 PM Test Reason : repeat Blood Pressure : / mmHG Vent. Rate : 064 BPM Atrial Rate : 064 BPM P-R Int : 144 ms QRS Dur : 100 ms QT Int : 394 ms P-R-T Axes : 069 -19 063 degrees QTc Int : 406 ms Sinus rhythm. with marked sinus arrhythmia. Incomplete right bundle branch block Borderline ECG When compared with ECG of 08-OCT-2018 11:49, (Unconfirmed) No significant change was found Unconfirmed Result
[2018-10-08 14:25] LABS: BILIRUBIN URINE NEGATIVE (NEGATIVE); BLOOD URINE 4+ (NEGATIVE); CLARITY CLEAR (CLEAR); COLOR YELLOW; GLUCOSE URINE NEGATIVE (NEGATIVE); KETONE URINE TRACE mg/dL (NEGATIVE); LEUKOCYTES URINE TRACE (NEGATIVE); NITRITE URINE NEGATIVE (NEGATIVE); PH URINE 6.5; PROTEIN URINE TRACE mg/dL (NEGATIVE); UROBILINOGEN URINE 1 mg/dL
[2018-10-08 14:27] LABS: URINE SOURCE CATH
[2018-10-08 14:29] LABS: URINE BACTERIA 1+ /HFP; URINE CAST NONE SEEN /LPF; URINE CRYSTAL NONE SEEN /HPF; URINE EPITHELIAL CELLS >10 /HPF (<10); URINE RBC TNTC /HPF (<10); URINE YEAST NONE SEEN /HPF
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
[2018-10-08 15:37] LABS: UR AMPHETAMINES QUAL PRESUMPTIVE POSITIVE (NONE DETECT); UR BARBITUATES QUAL NONE DETECTED (NONE DETECT); UR BENZODIAZEPIN QUAL NONE DETECTED (NONE DETECT); UR CANNABINOIDS QUAL NONE DETECTED (NONE DETECT); UR COCAINE QUAL NONE DETECTED (NONE DETECT); UR METHADONE QUAL NONE DETECTED (NONE DETECT); UR METHAMPHETAMINE QUAL NONE DETECTED (NONE DETECT); UR OPIATES QUAL NONE DETECTED (NONE DETECT); UR OXYCODONE QUAL NONE DETECTED (NONE DETECT); UR PCP QUAL NONE DETECTED (NONE DETECT); UR PROPOXYPHENE QUAL NONE DETECTED (NONE DETECT); UR TCA QUAL NONE DETECTED (NONE DETECT)
--- NOTE | 2018-10-08 16:04 | Diag Imaging Result Doc PS360 ---
EXAM: MRI BRAIN W/O CONTRAST HISTORY: h/o CVA, R. side weakness, aphasia TECHNIQUE: MRI brain without contrast. Axial, sagittal, and coronal images obtained in multiple sequences. COMPARISON: CT performed earlier. MRI from 05/21/2018 FINDINGS: No recent infarct. Tiny areas of increased signal on the FLAIR weighted images which may simply be chronic microvascular ischemic changes. No distinct mass or midline shift. No hydrocephalus. No epidural or subdural fluid collection. No sinus opacification. Normal orbits. IMPRESSION: No recent infarct. Electronically signed by Gopi Winter 10/08/2018 4:02 PM
[2018-10-08] MEDS ORDERED: ZOFRAN IV PRN (16:11)
[2018-10-08] MEDS ORDERED: SODIUM CHLORIDE 0.9% INJ SCH (16:15)
[2018-10-08] MEDS ORDERED: PROTONIX IV SCH (17:00)
[2018-10-08] MEDS: NS 1,000 ML IV SCH (18:10)
--- NOTE | 2018-10-08 18:16 | HISTORY AND PHYSICAL ---
CHIEF COMPLAINT: Altered mental status. HISTORY OF PRESENT ILLNESS: This is a 66-year-old gentleman who presented to the emergency room via EMS after being pulled over by the police department. Reportedly with AMS, slurred speech and seizure like activity once placed in handcuffs. In review of the patient's prior admits, the patient had a fairly similar presentation in 2014, although this was on the left side with a completely negative workup. Migraine was considered at that time, and he did have a complete recovery before discharge. in May, he presented with dysarthria and right upper and lower extremity weakness, with left tongue deviation. He was evaluated by Dr. Todd, neurology, who felt that his exam was consistent with a l left middle cerebral artery distribution stroke. He underwent MRI of the brain, which revealed chronic ischemic microvascular white matter disease. No acute disease. MRA of the brain revealed no significant abnormality, and MRA of the neck revealed no evidence of occlusion. PAST MEDICAL HISTORY: 1. Organic brain disorder. 2. Prostate cancer. 3. Hypertension. 4. Hyperlipidemia. 5. History of CAD, status post IL. 6. Possible CVA versus TIA, with resolution of symptoms. PAST SURGICAL HISTORY: Back surgery, testicle surgery, knee surgery and hand surgery. SOCIAL HISTORY: He is a lifelong nonsmoker. He states he quit drinking alcohol about 5 years ago. He has a history of heroin, methamphetamine and cocaine abuse that he smokes as well as injects. ALLERGIES: No known drug allergies. HOME MEDICATIONS: Gabapentin 600 mg p.o. t.i.d. and [place] 7.5/325 t.i.d. REVIEW OF SYSTEMS: Unable to obtain from the patient, as his speech is garbled and we are unsure of his answers. PHYSICAL EXAMINATION: GENERAL: This is a 66-year-old gentleman who is lying on the stretcher in the emergency room in no distress. VITAL SIGNS: Blood pressure is 119/78 with a heart rate of 72, respirations are 18, temperature is 98.3 degrees oral with room air saturations 100%. EYES: Pupils are equal, round and react to light. EOMs are intact. Sclerae are anicteric. HEENT: Head is normocephalic, atraumatic. Mucous membranes are moist. NECK: Supple, with trachea midline. CARDIOVASCULAR: Regular rate and rhythm. S1 and S2 are appreciated. Peripheral pulses are palpable x4 extremities. PULMONARY: Breath sounds are clear, with no increased work of breathing noted. Chest rises and falls symmetric with respiration. GASTROINTESTINAL: Abdomen is soft, nondistended, with bowel sounds in all 4 quadrants. SKIN: Warm and dry. NEUROLOGIC: He is alert, he follows commands at times. He has no facial droop. No tongue deviation. Equal nasal flaring. Equal shoulder shrug. He has a difficult time raising his right arm. It is it is slow. It does drift down. Left arm he raises without difficulty. He will raise right and left leg, with right weaker. He will just barely raise it off the bed. He will pronate both feet. His speech is stuttering. After he stutters a few times, attempting to say something, he will take a deep breath and answer in a full sentence. He states words very fast, then begins to stutter again. LABORATORY DATA: WBC is 6.2 with hemoglobin 12.5, hematocrit 37 and platelets 227,000. Sodium 139, potassium 3.5, BUN 12, creatinine 0.8 with a glucose of 119. Troponins are negative. Urinalysis reveals pad-uiuwastl-jx-count red blood cells, 10 to 20 white blood cells with greater than 10 epithelial cells, which is consistent with contamination but culture is pending. Urine drug screen is presumptive positive for amphetamines. DIAGNOSTIC DATA: CT of the head revealed no evidence of acute intracranial disease. Chest x-ray revealed negative exam. Brain MRI revealed chronic microvascular ischemic changes. No distinct mass or midline shift. No hydrocephalus. No epidural or subdural fluid collection. No sinus opacification. Normal orbits. No recent infarct. ASSESSMENT AND PLAN: 1. Possible cerebrovascular accident versus transient ischemic attack. 2. Dysarthria. 3. History of hypertension. 4. Chronic pain, on chronic opioids per Dr. Bubba Sauer. 5. History of prostate cancer. 6. History of coronary artery disease. 7. History of organic brain disorder. 8. Amphetamine use. PLAN: The patient will be admitted to ICU, placed on telemetry, with neurologic checks per stroke protocol. n.p.o. at present. We will attempt a swallow evaluation once he is in ICU, and we can start liquids if he tolerates. gentle IV hydration, giving Zofran for nausea. Protonix for PPI. identify any home medications. CBC and CMP in the morning. hold his gabapentin and [place] [facility] consult in the morning. Further treatments pending hospital course. This plan was discussed with Dr. Vera. Dictated by SOLITARIO Noriega for Favio Vera MD cc: SOLITARIO Noriega MD [facility]
[2018-10-09] MEDS: NS 1,000 ML IV SCH ×3 (02:30→22:24)
[2018-10-09 05:59] LABS: BASO% 0.5 % (0.0-0.8); EOS% 3.4 % (0.0-10.0); HEMATOCRIT 39.5 % (42.0-52.0); IMM GRAN% 0.4 % (0.0-0.5); LYMPH# 1.12 X1000 (1.2-3.4); LYMPH% 20.3 % (20.5-51.1); MCH 30.7 PG (27-31); MCHC 32.9 g/dL (33-37); MCV 93.4 FL (81-99); MONO# 0.59 X1000 (0.11-0.59); MONO% 10.7 % (1.7-9.3); MPV 10.3 FL (7.4-10.4); NEUT# 3.57 X1000 (1.4-6.5); NEUT% 64.7 % (42.2-75.2); PLT 192 X1000 (130-400); RBC 4.23 XMIL (4.7-6.1); RDW 14.2 % (11.5-14.5); WBC 5.52 X1000 (4.8-10.8)
[2018-10-09 06:00] LABS: BASO# 0.03 X1000 (0.0-0.2); EOS# 0.19 X1000 (0.0-0.7); IMM GRAN# 0.02 X1000 (0.0-0.04)
[2018-10-09 06:37] LABS: AGAP 8; ALBUMIN 3.3 g/dL (3.5-5.0); ALKALINE PHOSPHATASE 98 U/L (32-122); BUN 9 mg/dL (8-22); CALCIUM 7.8 mg/dL (8.8-10.2); CHLORIDE 110 mmol/L (98-107); COSMO 282; CREATININE 0.6 mg/dL (0.7-1.2); ESTIMATED GFR > 60; GLUCOSE 107 mg/dL (70-104); GOT 21 U/L (10-34); GPT 16 U/L (10-44); POTASSIUM 3.4 mmol/L (3.5-5.1); SODIUM 142 mmol/L (136-145); TCO2 24 mmol/L (25-35); TOTAL PROTEIN 5.6 g/dL (6.3-8.3)
[2018-10-09] MEDS ORDERED: KLOR-CON PO ONE (10:15)
[2018-10-09] MEDS ORDERED: NEURONTIN PO SCH (10:15)
[2018-10-09] MEDS ORDERED: ASPIRIN PO SCH (10:30)
--- NOTE | 2018-10-09 10:32 | PROGRESS NOTE ---
DATE: 10/09/2018 SUBJECTIVE: The patient denies having any acute complaints this morning. He does not appear to be in any acute distress. OBJECTIVE: Vital Signs: Temperature 97.5 degrees, pulse 54 per minute, respiratory rate 14 per minute, blood pressure 126/65, pulse ox 97% on room air. General: Patient is alert and awake. He does not appear to be in any acute distress. Cardiovascular System: First and second heart sounds are audible without murmurs or gallops. Respiratory System: Bilateral lung air entry is good without any rales or rhonchi. Gastrointestinal: Abdomen is benign. Neurological: Some slurred speech is present. Also, there is slight weakness in right upper extremity. DIAGNOSTIC DATA: CBC is within normal limits. Chemistry showed potassium of 3.4. Rest of the chemistry is nondiagnostic. Brain MRI done yesterday showed no recent infarct. Chest x-ray done yesterday was also negative for any acute disease. IMPRESSION: 1. Right upper extremity weakness with possible transient ischemic attack, although cerebrovascular accident has been ruled out by negative brain magnetic resonance imaging. It could be residual from previous cerebrovascular disease. 2. History of coronary disease. 3. Hypokalemia. PLAN: The patient will be continued here at [facility] intensive care unit, and I am going to give him potassium chloride 40 mEq orally, along with starting him on aspirin 81 mg orally once daily. Physical therapy has already been ordered. The patient can be discharged home in the next 1 to 2 days if remains stable. cc: Hamida Brian MD MTDD
[2018-10-09] MEDS: NEURONTIN PO SCH ×2 (12:13→20:50)
[2018-10-09] MEDS: ASPIRIN PO SCH (12:14)
[2018-10-09 12:40] LABS: CLARITY SLIGHTLY CLOUDY (CLEAR); COLOR YELLOW; URINE SOURCE CLEAN CATCH
[2018-10-09 12:41] LABS: BILIRUBIN URINE NEGATIVE (NEGATIVE); BLOOD URINE 4+ (NEGATIVE); GLUCOSE URINE NEGATIVE (NEGATIVE); KETONE URINE NEGATIVE (NEGATIVE); LEUKOCYTES URINE NEGATIVE (NEGATIVE); NITRITE URINE NEGATIVE (NEGATIVE); PH URINE 6.5; PROTEIN URINE TRACE mg/dL (NEGATIVE); UROBILINOGEN URINE 1 mg/dL
[2018-10-09 12:50] LABS: URINE CRYSTAL CA OXALATE PRESENT /HPF; URINE EPITHELIAL CELLS <10 /HPF (<10); URINE RBC 20-40 /HPF (<10)
[2018-10-09] MEDS: NORCO-7.5 PO PRN ×2 (18:37→23:25)
[2018-10-09] MEDS ORDERED: PRINIVIL PO SCH (21:00)
[2018-10-10 07:16] LABS: AGAP 8; BUN 10 mg/dL (8-22); CHLORIDE 110 mmol/L (98-107); COSMO 280; CREATININE 0.7 mg/dL (0.7-1.2); ESTIMATED GFR > 60; GLUCOSE 97 mg/dL (70-104); POTASSIUM 3.8 mmol/L (3.5-5.1); SODIUM 141 mmol/L (136-145); TCO2 23 mmol/L (25-35)
[2018-10-10 07:17] LABS: CALCIUM 8.1 mg/dL (8.8-10.2); MAGNESIUM 1.8 mg/dL (1.5-2.7)
[2018-10-10] MEDS: NEURONTIN PO SCH ×2 (08:41→21:26)
[2018-10-10] MEDS: NORCO-7.5 PO PRN ×2 (08:41→18:55)
[2018-10-10] MEDS: ASPIRIN PO SCH (08:41)
[2018-10-10] MEDS: NS 1,000 ML IV SCH ×2 (08:42→21:26)
[2018-10-10] MEDS ORDERED: PRINIVIL PO SCH (09:00)
--- NOTE | 2018-10-10 13:24 | PROGRESS NOTE ---
DATE: 10/10/2018 SUBJECTIVE: Patient denies having any acute complaints this morning. OBJECTIVE: Vital Signs: Temperature 98.0 degrees, pulse 60 per minute, respiratory rate 13 per minute, blood pressure 114/60, pulse oximetry 97% on room air. General: Patient is alert and oriented x3. He does not appear to be in any acute distress. Cardiovascular System: First and second heart sounds are audible without murmurs or gallops. Respiratory System: Bilateral lung air entry is good without any rales or rhonchi. Gastrointestinal: Abdomen is soft and nontender. Normal bowel sounds are present. Neuro: Right upper extremity slight weakness is present. No other focal deficits are noted. Extremities: No deformities are noted. DIAGNOSTIC DATA: CBC is nondiagnostic and comprehensive basic metabolic panel obtained this morning was also found to be nondiagnostic. IMPRESSION: 1. Altered mental status that has now improved. 2. Right upper extremity weakness that appears to be residual from his previous CVA. 3. Coronary artery disease that is stable. PLAN: The patient will be continued with his current medications and care and we are going to transfer him to med/surg floor today. He can probably be discharged home tomorrow if he remains stable and does not have any worsening of his clinical condition. cc: Hamida Brian MD
[2018-10-11] MEDS: NORCO-7.5 PO PRN ×2 (00:45→04:49)
[2018-10-11 07:41] VITALS: BP 139/77
--- NOTE | 2018-10-12 05:42 | DISCHARGE SUMMARY ---
ADMISSION DATE: 10/08/2018 DISCHARGE DATE: 10/11/2018 ADMISSION DIAGNOSES: 1. Possible cerebrovascular accident versus transient ischemic attack. 2. Dysarthria. 3. History of hypertension. 4. Chronic pain on chronic opioids. 5. History of prostate cancer. 6. History of coronary artery disease. 7. History of organic brain disorder. 8. Amphetamine use. DISCHARGE DIAGNOSES: 1. Altered mental status that improved. 2. Right upper extremity weakness that appears to be a residual from a previous cerebrovascular accident. 3. Coronary artery disease that is stable. HOSPITAL COURSE: On 10/08/2018, Mr. Roni Abdullahi a 66-year-old male presented to the emergency department via EMS after being pulled over by the police department. He was found to be altered reporting seizure-like activity once he was put in handcuffs stuttering of speech with right-sided weakness. Apparently, in 2003 to 2004, it looked like maybe it was in May of this year he was admitted with the same symptoms, and the tongue deviated to the left at that time. He was suspected to have a left MCA/CVA although imaging was negative. He was evaluated by Dr. Ross in Neurology who felt that the exam was consistent with a left MCA distribution stroke. He underwent MRI of the brain which revealed chronic microvascular white matter disease. No acute disease. MRA of the brain revealed no significant abnormalities. MRA of the neck revealed no evidence of occlusion. On reviewing the Neurology consult, Dr. Boswell reported that there was a similar presentation in 2014 with a complete negative workup and migraine was considered at that time. He had complete recovery and was discharged home. Now, he is back with the same symptoms. He was placed in the ICU and monitored per stroke protocol. He was started on aspirin. Mentally, he improved enough for discharge home. He had another brain MRI while he was here. There was no recent infarct. Head CT was also negative for any acute findings. DISCHARGE VITAL SIGNS: Temperature 98.1 degrees, heart rate 75, respiratory rate 18, blood pressure 139/77, and O2 saturation 100% on room air. LABORATORY DATA: On the , white blood cell count 5000, hemoglobin 13, hematocrit 39 and platelet count 192,000. On the , sodium 141, potassium 3.8, BUN 10, creatinine 0.7, glucose 97, calcium 8.1, and magnesium 1.8. Urine culture negative. Urine drug screen was positive for amphetamines. IMAGING: Head CT negative for acute findings. Brain MRI also negative for acute findings. Chest x-ray also negative exam. DISCHARGE MEDICATIONS: 1. Aspirin 325 mg p.o. daily. 2. Neurontin 600 mg p.o. twice daily. 3. [place] t.i.d. p.r.n. 4. Lisinopril 20 mg p.o. twice daily. DIET: Heart healthy. DISCHARGE ACTIVITY: As tolerated. DISCHARGE INSTRUCTIONS: If the symptoms of stroke return to seek medical attention. PHYSICIAN FOLLOW UP: Dr. Sauer on 10/21/2018 at 1:00 in the afternoon. DISCHARGE DISPOSITION: Home. Dictated by SOLITARIO Ross for Favio Vera MD cc: SOLITARIO Ross MD
--- NOTE | 2018-10-12 10:26 | DISCHARGE SUMMARY ---
ADMISSION DATE: 10/08/2018 DISCHARGE DATE: 10/11/2018 The patient notes that overall he is feeling better. His confusion, disorientation appear to be back to his baseline. Everything appears to have resolved. He still has right-sided weakness, but this is from a previous stroke. PLAN: We are going to discharge him home. No changes made in his home medications. cc: Favio Vera MD
== END 2018-10-11 09:15 | disposition home or self-care (01) | DRG 948 ==
LOC: P.ED 11:53 → SUATTDRO 16:45 → P.ICU 16:45 → P.MEDSURG 10-10 14:51
PROVIDERS: ATTEND Family Medicine